=== PATIENT | female | born 1960 | race African-American/Black ===

== ENCOUNTER 2019-06-01 11:53 | Inpatient (IN) | payer MEDICARE, MEDICAID ==
[~2019-06-01] VITALS: Ht 157.5 cm; Wt 111.0 kg
[~2019-06-01 11:53] MED LIST: BENA20TA13; FLUT250M9
[2019-06-01] MEDS ORDERED: cloNIDine HCL 0.1 MG TAB ONE (12:15)
[2019-06-01] MEDS ORDERED: cloNIDine HCL 0.1 MG TAB PO ONE (12:30)
[2019-06-01 13:12] LABS: Basophils # (auto) 0 uL; Basophils % (auto) 0.6 % (0.0-2.0); Eosinophils # (auto) 0.1 uL; Eosinophils % (auto) 0.9 % (0.0-7.0); Hematocrit 40.9 % (36.0-46.0); Hemoglobin 13.5 g/dL (12.2-16.2); Lymphocytes # (auto) 1.1 uL; Lymphocytes % (auto) 17.7 % (10.0-50.0); Mean Corpuscular Hemoglobin 28.8 pg (28.0-32.0); Mean Corpuscular Volume 87.1 fL (80.0-100.0); Monocytes # (auto) 0.4 uL; Monocytes % (auto) 6.6 % (0.0-12.0); Neutrophils # (auto) 4.5 uL; Neutrophils % (auto) 74.2 % (37.0-80.0); Nucleated Red Blood Cells % 0.1 %; Platelet Count (auto) 109 10^3/uL (140-450); Red Blood Cells 4.69 10^6/uL (4.0-5.20); Red Cell Distribution Width 13.9 % (11.8-14.3)
[2019-06-01 13:20] LABS: Alanine Aminotransferase 35 U/L (13-56); Albumin 3.3 g/dL (3.4-5.0); Anion Gap 11 (5-15); Aspartate Aminotransferase 40 U/L (15-37); BUN/Creatinine Ratio 10.7; Blood Urea Nitrogen 11 mg/dL (7-18); Carbon Dioxide 24 mmol/L (21-32); Chloride 109 mmol/L (98-107); GFR African American 71 mL/min; GFR Non-African American 58 mL/min; Glucose 100 mg/dL (74-106); Magnesium 1.8 mg/dL (1.6-2.6); Potassium 3.2 mmol/L (3.5-5.1); Sodium 144 mmol/L (136-145)
[2019-06-01 13:25] LABS: Alkaline Phosphatase 328 U/L (45-117); Bilirubin, Total 1.5 mg/dL (0.2-1.0); Total Protein 8.8 g/dL (6.4-8.2)
[2019-06-01] MEDS ORDERED: SODIUM CHLORIDE 0.9% 250 ML IV ONE (13:45)
[2019-06-01] MEDS ORDERED: methylPREDNISolone SOD SUCC 125 MG/2 ML VL IV ONE (13:45)
[2019-06-01] MEDS ORDERED: ALBUTEROL SULF 2.5 MG/0.5ML(0.5%) NEB SOLN NEB ONE (13:45)
[2019-06-01] MEDS ORDERED: IPRATROPIUM BROM 0.5 MG/2.5ML INH SOL NEB ONE (13:45)
[2019-06-01] MEDS ORDERED: LEVOFLOXACIN 750MG 150 ML IV ONE (15:45)
[2019-06-01] MEDS ORDERED: HYDROcodone-ACET 5/325MG TAB PO PRN (17:00)
[2019-06-01] MEDS ORDERED: NITROGLYCERIN 0.4 MG SL TAB SL PRN (17:00)
[2019-06-01] MEDS ORDERED: MORPHINE SULF INJ 2 MG/ML SYRINGE 1ML IV PRN ×2 (17:00)
[2019-06-01] MEDS ORDERED: hydrALAZINE HCL 20 MG/ML VL IV PRN (17:00)
[2019-06-01] MEDS ORDERED: ONDANSETRON HCL 4 MG/2 ML VIAL IV PRN (17:00)
[2019-06-01] MEDS ORDERED: ACETAMINOPHEN 500 MG TAB PO PRN (17:00)
[2019-06-01] MEDS ORDERED: POTASSIUM CHL 20 Meq TABLET PO ONE (17:00)
[2019-06-01 19:51] VITALS: BP 163/80
--- NOTE | 2019-06-01 19:51 | NUR ---
Telemetry admit from ER JOVANA MARTIN admitted to Telemetry unit after SBAR received. Patient oriented to Starla rodriguez RN, unit, room, bed, and unit policies regarding patient care and visiting hours. Patient now on continuous telemetry monitoring, tele box # [id number] and telemetry reading on arrival to unit is SINUS TACHY @102 . Patient placed on bedside oxygen, weighed by bedscale and encouraged to call if they need something. All questions and concerns addressed, patient verbalized understanding.
[2019-06-01] MEDS: GABAPENTIN 100 MG CAP PO SCH (21:25)
[2019-06-01] MEDS: ATORVASTATIN 20 MG TAB PO SCH (21:25)
[2019-06-01] MEDS: METOPROLOL TARTRATE 50 MG TAB PO SCH (21:25)
[2019-06-01] MEDS ORDERED: PANT40TA2 PO (23:18)
[2019-06-01] MEDS ORDERED: SPIR25TA8 PO (23:18)
[2019-06-01] MEDS ORDERED: LOSA-46 PO (23:19)
--- NOTE | 2019-06-02 04:33 | NUR ---
PATIENT MOVED TO ROOM 275B WITH ALL BELONGINGS
[2019-06-02 05:00] VITALS: BP 157/90
--- NOTE | 2019-06-02 06:52 | NUR ---
CLOSING NOTE PATIENT SLEEPING AT THIS TIME NO S/S OF DISTRESS NOTED. CALL LIGHT WITHIN REACH. WILL ENDORSE CARE TO AM SHIFT RN
[2019-06-02 07:28] LABS: Basophils # (auto) 0 uL; Basophils % (auto) 0.4 % (0.0-2.0); Eosinophils # (auto) 0.1 uL; Hemoglobin 11.2 g/dL (12.2-16.2); Monocytes # (auto) 0.8 uL; Neutrophils # (auto) 5.6 uL; Red Blood Cells 3.22 10^6/uL (4.0-5.20)
[2019-06-02 07:30] LABS: Eosinophils % (auto) 1.6 % (0.0-7.0); Hematocrit 33.3 % (36.0-46.0); Lymphocytes # (auto) 1.1 uL; Lymphocytes % (auto) 14.1 % (10.0-50.0); Mean Corpuscular Hemoglobin 34.8 pg (28.0-32.0); Mean Corpuscular Hgb Conc. 33.7 g/dL (32.0-36.0); Mean Corpuscular Volume 103.4 fL (80.0-100.0); Monocytes % (auto) 10.7 % (0.0-12.0); Neutrophils % (auto) 73.2 % (37.0-80.0); Platelet Count (auto) 265 10^3/uL (140-450); Red Cell Distribution Width 14.9 % (11.8-14.3); White Blood Cell 7.6 10^3/uL (4.4-10.8)
--- NOTE | 2019-06-02 07:30 | NUR ---
Open Shift Note Received report on patient, awake and sitting up in bed. Patient shows no signs of distress at this time. Discussed POC with patient and pending cariology consult and echo. Patient verbalized understanding. Patient verbalizes they have no chest pain or SOB at this time. Bed in lowest locked position, side rails up x2 and call light within reach. Will continue to monitor.
[2019-06-02 07:37] LABS: INR 1.61 (0.9-1.15); Partial Thromboplastin Time 24.5 sec (23.64-32.05)
[2019-06-02 07:47] LABS: Potassium 4.1 mmol/L (3.5-5.1)
[2019-06-02 07:52] LABS: BUN/Creatinine Ratio 23.3
[2019-06-02 08:33] VITALS: BP 145/89
[2019-06-02] MEDS: ASPirin-EC 81 mg tab PO SCH (10:45)
[2019-06-02] MEDS: LISINOPRIL 10 MG TAB PO SCH (10:45)
[2019-06-02] MEDS: GABAPENTIN 100 MG CAP PO SCH ×2 (10:45→22:14)
[2019-06-02] MEDS: METOPROLOL TARTRATE 50 MG TAB PO SCH (10:46)
[2019-06-02] MEDS: FUROSEMIDE 40 MG/4 ML VIAL IV SCH ×2 (12:15→18:26)
[2019-06-02 13:01] VITALS: BP 130/69
[2019-06-02 17:03] VITALS: BP 112/65
--- NOTE | 2019-06-02 18:58 | NUR ---
Closing Note Patient sitting up ion bed, shows no signs of distress at this time. Bed in lowest locked position, side rails up x2 and call light within reach. Patient encouraged to call for help ambulating to restroom if needed.
--- NOTE | 2019-06-02 20:00 | NUR ---
Opening Shift Note: A&Ox4, resting in bed. Currently on 3LO2 via NC; wears 2LO2 at home, pain level 0/10, and at baseline ambulates independently with a cane; currently independent to BSC. Bed locked in lowest position, side rails up x2, and call light within reach. IV 20 g in right hand IID inserted on 06/01/19. Skin intact. POC discussed and questions answered. Will continue to round prn.
[2019-06-02 22:00] VITALS: BP 121/70
[2019-06-02] MEDS: CARVEDILOL 3.125 MG TAB PO SCH (22:14)
[2019-06-02] MEDS: ATORVASTATIN 20 MG TAB PO SCH (22:14)
[2019-06-03 05:09] VITALS: BP 119/77
[2019-06-03] MEDS: FUROSEMIDE 40 MG/4 ML VIAL IV SCH ×2 (06:23→18:48)
--- NOTE | 2019-06-03 07:30 | NUR ---
OPENING NOTE Assumed care of patient from NOC RNSuzan. Patient resting in bed with eyes closed, even rise and fall of chest noted. No S/S of distress/SOB or pain. Bed in lowest, locked position with side rails up x2 and call light within reach. Will continue to monitor for changes Q1hr and PRN.
[2019-06-03] MEDS: CARVEDILOL 3.125 MG TAB PO SCH ×2 (10:00→22:14)
[2019-06-03] MEDS: ASPirin-EC 81 mg tab PO SCH (10:23)
[2019-06-03] MEDS: LISINOPRIL 10 MG TAB PO SCH (10:24)
[2019-06-03] MEDS: GABAPENTIN 100 MG CAP PO SCH ×2 (10:24→22:15)
--- NOTE | 2019-06-03 10:31 | NUR ---
MED HELD Held scheduled Coreg secondary to low HR, 58.
[2019-06-03 11:50] VITALS: BP 124/78
[2019-06-03 17:00] VITALS: BP 131/61
--- NOTE | 2019-06-03 19:25 | NUR ---
CLOSING NOTE Endorsed care of patient to NOC Suzan PAUL.
--- NOTE | 2019-06-03 20:20 | NUR ---
Drug screen urine sample sent to lab via [employer] system.
[2019-06-03 21:10] LABS: Alcohol, Urine < 3.0 mg/dL (0-5); Amphetamine Screen, Urine NEGATIVE (NEGATIVE); Barbiturate Scree,Urine NEGATIVE (NEGATIVE); Benzodiazephine Screen, Urine NEGATIVE (NEGATIVE); Cannabinoid Screen, Urine NEGATIVE (NEGATIVE); Cocaine Screen, Urine NEGATIVE (NEGATIVE); Opiate Scree,Urine NEGATIVE (NEGATIVE); Phencyclidine Screen, Urine NEGATIVE (NEGATIVE)
[2019-06-03 22:00] VITALS: BP 143/75
[2019-06-03] MEDS: ATORVASTATIN 20 MG TAB PO SCH (22:14)
[2019-06-04 05:35] VITALS: BP 106/67
[2019-06-04] MEDS: FUROSEMIDE 40 MG/4 ML VIAL IV SCH (06:13)
[2019-06-04 07:03] LABS: Calcium 8.4 mg/dL (8.5-10.1); Potassium 3.3 mmol/L (3.5-5.1)
--- NOTE | 2019-06-04 07:30 | NUR ---
OPENING NOTE Assumed care of patient from NOC RNSuzan. Patient awake and alert with no S/S of distress/SOB or pain. Nasal cannula in place, connected to 3L O2. Instructed on POC and to call for assist PRN, verbalized understanding. Bed in lowest, locked position with side rails up x2 and call light within reach. Will continue to monitor for changes Q1hr and PRN.
[2019-06-04 09:00] VITALS: BP 106/73
--- NOTE | 2019-06-04 09:45 | NUR ---
EKG EKG performed per order.
[2019-06-04] MEDS ORDERED: FUROSEMIDE 40 MG/4 ML VIAL IV SCH (10:00)
[2019-06-04] MEDS: CARVEDILOL 3.125 MG TAB PO SCH ×2 (10:24→22:03)
[2019-06-04] MEDS: LISINOPRIL 10 MG TAB PO SCH (10:25)
[2019-06-04] MEDS: POTASSIUM CHL 20 Meq TABLET PO SCH (10:25)
[2019-06-04] MEDS: GABAPENTIN 100 MG CAP PO SCH ×2 (10:25→22:03)
[2019-06-04] MEDS: ASPirin-EC 81 mg tab PO SCH (10:25)
--- NOTE | 2019-06-04 12:06 | NUR ---
Nutrition Assessment Notes please see attached link for compete assessment Est. Needs ABW [id number] kcal (17-20 kcal/kgBW), 64-80 gms pro (0.8-1.0 gms/kgBW r/t elev RFT). Will continue to monitor pertinent labs and reassess nutrient need prn Addendum: 06/04/19 at [address] Amended: Links added.
[2019-06-04 13:00] VITALS: BP 137/83
[2019-06-04 17:08] VITALS: BP 116/68
--- NOTE | 2019-06-04 20:00 | NUR ---
Opening Shift Note: A&Ox4, resting in bed. Currently on 3LO2 via NC; wears 2LO2 at home, pain level 0/10, and at baseline ambulates independently with a cane; currently independent to BSC. Bed locked in lowest position, side rails up x2, and call light within reach. IV 20 g in right hand IID inserted on 06/01/19. Skin intact. POC discussed and questions answered. Will continue to round prn. NPO at 0000 for pending stress test.
[2019-06-04 22:00] VITALS: BP 136/72
[2019-06-04] MEDS: ATORVASTATIN 20 MG TAB PO SCH (22:03)
--- NOTE | 2019-06-05 | NUR ---
NPO for stress test on 06/05/19
[2019-06-05 04:55] VITALS: BP 117/83
[2019-06-05 06:21] LABS: BUN/Creatinine Ratio 28.1; Calcium 8.7 mg/dL (8.5-10.1); Potassium 3.7 mmol/L (3.5-5.1)
--- NOTE | 2019-06-05 08:00 | NUR ---
RECEIVED PATIENT, ALERT AND ORIENTED X4, NOT IN DISTRESS, CLEAR LS IN BILATERAL UPPER AND WHEEZING LOWER LUNG LOBES, RR=18, HEAR RAT=76, DENIED SOB AND CHEST PAIN, ABDOMEN SOFT WITH ACTIVE, DENIED ABDOMINAL PAIN OR DISCOMFORT, KEEP NPO FOR STRESS TEST ORDERED, EDUCATION WAS PROVIDED, VERBALIZED UNDERSTANDING, LAST BM=06/04/19 REPORTED, SKIN INTACT WARM TO TOUCH, DENIED PAIN, RESTING ON BED, HAD OF BED ELEVATED, BED ON LOWER POSITION, RAILS UP X2, CALL LIGHTS ON REACH, PENDING CARDIAC STRESS TEST, WILL CONTINUE MONITORING.
--- NOTE | 2019-06-05 08:30 | NUR ---
NONE COMPLIANT, ATE BREAK FAST, RADIOLOGY WAS CALLED FOR STRESS TEST TIME FOLLOW UP AND NOTIFIED PATIENT WILL BE NPO POST BREAK FAST, APPROXIMATE STRESS TEST TIME POST 1200 PM REPORTED.
[2019-06-05 09:00] VITALS: BP 123/72
[2019-06-05] MEDS: FUROSEMIDE 40 MG/4 ML VIAL IV SCH (10:39)
[2019-06-05] MEDS: CARVEDILOL 3.125 MG TAB PO SCH ×2 (10:40→21:58)
[2019-06-05] MEDS: ASPirin-EC 81 mg tab PO SCH (10:40)
[2019-06-05] MEDS: POTASSIUM CHL 20 Meq TABLET PO SCH (10:40)
[2019-06-05] MEDS: GABAPENTIN 100 MG CAP PO SCH ×2 (10:41→21:57)
[2019-06-05] MEDS: LISINOPRIL 10 MG TAB PO SCH (10:42)
[2019-06-05 13:00] VITALS: BP 107/74
--- NOTE | 2019-06-05 13:45 | NUR ---
STRESS LAB WAS CALLED FOR FOLLOW UP, STRESS TEST POSTPONED FOR 06/06/19 DUE TO PATIENT LOAD INCREASE REPORTED BY STRESS LAB, PATIENT WAS INFORMED AND LUNCH TRAY PROVIDED ORDERED, SITTING ON BED EATING LUNCH, FAMILY AT BED SIDE, WILL CONTINUE MONITORING.
[2019-06-05 17:00] VITALS: BP 117/64
--- NOTE | 2019-06-05 19:26 | NUR ---
NOT IN DISTRESS, RESTING ON BED, DENIED PAIN, REPORT WAS GIVEN TO THE REDEVELOPMENT MANAGER RN.
--- NOTE | 2019-06-05 19:30 | NUR ---
OPENING SHIFT NOTE Patient in bed alert and oriented x 4, verbally coherent, able to make needs known. Patient denies pain and discomfort at this time. Plan of care discussed, patient verbalized understanding. All needs attended, will continue to monitor.
[2019-06-05] MEDS: ATORVASTATIN 20 MG TAB PO SCH (21:58)
[2019-06-05 22:00] VITALS: BP 99/65
--- NOTE | 2019-06-05 22:00 | NUR ---
Held medication Carvedilol for procedure tomorrow.
[2019-06-06 05:11] VITALS: BP 126/84
--- NOTE | 2019-06-06 07:45 | NUR ---
Opening Note Assumed care of patient, she is A & O x4, no s/s of distress at this time. Patient POC discussed, she is curious if she is having a stress test today. Will clarify orders with MD. Bed is in low, locked position, call light within reach. Bedside commode at bedside. Will continue to monitor Q1h and PRN. Educated patient to call for assistance PRN.
[2019-06-06 09:00] VITALS: BP 115/62
[2019-06-06] MEDS: FUROSEMIDE 40 MG/4 ML VIAL IV SCH (11:05)
[2019-06-06] MEDS: CARVEDILOL 3.125 MG TAB PO SCH (11:06)
[2019-06-06] MEDS: POTASSIUM CHL 20 Meq TABLET PO SCH (11:07)
[2019-06-06] MEDS: GABAPENTIN 100 MG CAP PO SCH (11:07)
[2019-06-06] MEDS: ASPirin-EC 81 mg tab PO SCH (11:07)
[2019-06-06] MEDS: LISINOPRIL 10 MG TAB PO SCH (11:07)
[2019-06-06 13:00] VITALS: BP 126/59
--- NOTE | 2019-06-06 15:45 | NUR ---
Paged Dr. Parson to clarify discharge order and NM VQ scan. It was ordered after discharge.
[2019-06-06 17:00] VITALS: BP 100/63
[2019-06-06] MEDS ORDERED: CARV12.544 PO (18:16)
[2019-06-06] MEDS ORDERED: FURO40TA4 PO (18:17)
[2019-06-06] MEDS ORDERED: POTA-180 PO (18:22)
[2019-06-06 18:23] VITALS: BP 115/62
== END 2019-06-06 19:50 | disposition home or self-care (01) | DRG 280 ==
LOC: ER 11:53 → TELE 11:54 → TELE-WESTW 19:58
PROVIDERS: ADMIT Nurse Practitioner Acute Care; ATTEND Internal Medicine
DX: I21.A1 Myocardial infarction type 2 (principal); J96.20 Acute and chronic respiratory failure, unspecified whether with hypoxia or hypercapnia; J18.9 Pneumonia, unspecified organism; I50.43 Acute on chronic combined systolic (congestive) and diastolic (congestive) heart failure; E44.1 Mild protein-calorie malnutrition; I16.9 Hypertensive crisis, unspecified; Z68.41 Body mass index [BMI] 40.0-44.9, adult; J44.0 Chronic obstructive pulmonary disease with (acute) lower respiratory infection; I42.9 Cardiomyopathy, unspecified; I11.0 Hypertensive heart disease with heart failure; D86.9 Sarcoidosis, unspecified; E87.6 Hypokalemia; I07.1 Rheumatic tricuspid insufficiency; I35.0 Nonrheumatic aortic (valve) stenosis; Z99.81 Dependence on supplemental oxygen; Z80.3 Family history of malignant neoplasm of breast
CPT/HCPCS: 36415; 71045; 71046; 78582; 80048; 80053; 80307; 82164; 83605; 83735; 83880; 84484; 85025; 85610; 85730; 86141; 87040; 93005; 93306; 94640; 96365; 96375; G0378; J1956

== ENCOUNTER 2020-05-21 19:43 | Inpatient (IN) | payer MEDICARE, MEDICAID ==
[~2020-05-21] VITALS: Ht 157.5 cm; Wt 121.0 kg
[~2020-05-21 19:43] MED LIST changes: -BENA20TA13; +CARV12.544 PO; +FURO40TA4 PO; +LOSA-69 PO; +PANT40TA2 PO; +POTA-180 PO; +SPIR25TA8 PO
[2020-05-21 21:30] LABS: Urine Bacteria FEW /hpf (None Seen); Urine Blood Negative /uL (Negative); Urine Specific Gravity 1.006 (1.001-1.035); Urine WBC <1 /hpf (0 - 5)
[2020-05-21 21:58] LABS: Basophils # (auto) 0.1 10 ^3/uL (0-0.2); Basophils % (auto) 0.7 % (0.0-2.0); Eosinophils # (auto) 0.2 10 ^3/uL (0-0.8); Eosinophils % (auto) 2.2 % (0.0-7.0); Hematocrit 39.1 % (36.0-46.0); Hemoglobin 12.7 g/dL (12.2-16.2); Lymphocytes # (auto) 1.4 10 ^3/uL (0.4-5.4); Lymphocytes % (auto) 19.6 % (10.0-50.0); Mean Corpuscular Hemoglobin 28.7 pg (28.0-32.0); Mean Corpuscular Hgb Conc. 32.5 g/dL (32.0-36.0); Mean Corpuscular Volume 88.3 fL (80.0-100.0); Monocytes # (auto) 0.3 10 ^3/uL (0-1.3); Monocytes % (auto) 4.9 % (0.0-12.0); Neutrophils % (auto) 72.6 % (37.0-80.0); Nucleated Red Blood Cells % 0.1 %; Platelet Count (auto) 131 10^3/uL (140-450); Red Blood Cells 4.43 10^6/uL (4.0-5.20); Red Cell Distribution Width 13.7 % (11.8-14.3); White Blood Cell 6.9 10^3/uL (4.4-10.8)
[2020-05-21 22:17] LABS: Calcium 8.7 mg/dL (8.5-10.1); Potassium 3.1 mmol/L (3.5-5.1)
[2020-05-21 22:20] LABS: Albumin 2.9 g/dL (3.4-5.0); BUN/Creatinine Ratio 21.4; INR 1.11 (0.9-1.15); Partial Thromboplastin Time 26.4 sec (23.64-32.05)
[2020-05-21 22:24] LABS: Bilirubin, Total 1.1 mg/dL (0.2-1.0); Total Protein 8.7 g/dL (6.4-8.2)
[2020-05-22] MEDS ORDERED: SODIUM CHLORIDE 0.9% 1,000 ML IV ONE (01:15)
[2020-05-22] MEDS ORDERED: FUROSEMIDE 20 MG/2 ML VIAL IV ONE (04:45)
[2020-05-22] MEDS ORDERED: POTASSIUM CHL 20 Meq TABLET PO ONE (05:15)
[2020-05-22] MEDS ORDERED: ACETAMINOPHEN 325 MG TAB PO PRN (06:00)
[2020-05-22] MEDS ORDERED: ONDANSETRON HCL 4 MG/2 ML VIAL IV PRN (06:00)
[2020-05-22] MEDS: FUROSEMIDE 20 MG/2 ML VIAL IV SCH ×2 (06:00→18:40)
[2020-05-22] MEDS ORDERED: TEMAZEPAM 15 MG CAP PO PRN (06:00)
[2020-05-22] MEDS ORDERED: HYDROcodone-ACET 5/325MG TAB PO PRN (06:00)
[2020-05-22] MEDS ORDERED: NITROGLYCERIN 0.4 MG SL TAB SL PRN (06:15)
[2020-05-22] MEDS ORDERED: MORPHINE SULF INJ 2 MG/ML SYRINGE 1ML IV PRN (06:15)
[2020-05-22] MEDS ORDERED: dilTIAZem 25 MG/5 ML VIAL IV ONE (06:45)
[2020-05-22] MEDS: cefTRIAXone 1GM/50ML D5W 50 ML IV SCH (09:13)
[2020-05-22 09:30] VITALS: BP 134/83
[2020-05-22] MEDS: CARVEDILOL 12.5 MG TAB PO SCH ×2 (10:30→21:50)
[2020-05-22] MEDS: PANTOPRAZOLE 40 MG TAB PO SCH (10:30)
[2020-05-22] MEDS: SPIRONOLACTONE 25 MG TAB PO SCH (10:30)
[2020-05-22] MEDS: LOSARTAN POTASSIUM 50 MG TAB PO SCH (10:30)
[2020-05-22] MEDS: AZITHROMYCIN 500MG/ 250ML 250 ML IV SCH (10:30)
[2020-05-22] MEDS ORDERED: METOPROLOL TARTRATE 1MG/1ML-5ML VIAL IV PRN (11:00)
[2020-05-22] MEDS ORDERED: ENOXAPARIN SOD 30 MG/0.3 ML SYRINGE SC ONE (11:30)
[2020-05-22] MEDS ORDERED: IOHEXOL 350 MG/ML 100ML IJ ONE (12:02)
[2020-05-22] MEDS ORDERED: PNEUMOCOCCAL VACC POLYS 25 MCG/0.5 ML VIAL IM ONE (12:15)
[2020-05-22] MEDS ORDERED: METOPROLOL TARTRATE 50 MG TAB PO ONE (12:15)
[2020-05-22] MEDS ORDERED: ENOXAPARIN SOD 40 MG/0.4 ML SYRINGE SC ONE (12:30)
[2020-05-22 12:41] VITALS: BP 123/80
[2020-05-22 17:06] VITALS: BP 133/91
[2020-05-22] MEDS: METOPROLOL TARTRATE 50 MG TAB PO SCH (21:51)
[2020-05-22 22:00] VITALS: BP 121/90
[2020-05-23 05:00] VITALS: BP 112/84
[2020-05-23 06:11] LABS: Basophils # (auto) 0.1 10 ^3/uL (0-0.2); Basophils % (auto) 0.8 % (0.0-2.0); Eosinophils # (auto) 0.2 10 ^3/uL (0-0.8); Eosinophils % (auto) 3.1 % (0.0-7.0); Hemoglobin 12.8 g/dL (12.2-16.2); Lymphocytes # (auto) 1.3 10 ^3/uL (0.4-5.4); Mean Corpuscular Hemoglobin 29.5 pg (28.0-32.0); Mean Corpuscular Hgb Conc. 32.8 g/dL (32.0-36.0); Mean Corpuscular Volume 89.9 fL (80.0-100.0); Monocytes # (auto) 0.4 10 ^3/uL (0-1.3); Monocytes % (auto) 5.6 % (0.0-12.0); Neutrophils # (auto) 4.9 10 ^3/uL (1.6-8.6); Neutrophils % (auto) 71.5 % (37.0-80.0); Nucleated Red Blood Cells % 0.1 %; Platelet Count (auto) 123 10^3/uL (140-450); Red Blood Cells 4.33 10^6/uL (4.0-5.20); White Blood Cell 6.8 10^3/uL (4.4-10.8)
[2020-05-23] MEDS: FUROSEMIDE 20 MG/2 ML VIAL IV SCH ×2 (06:45→19:38)
[2020-05-23] MEDS: cefTRIAXone 1GM/50ML D5W 50 ML IV SCH (09:13)
[2020-05-23] MEDS: SPIRONOLACTONE 25 MG TAB PO SCH (09:13)
[2020-05-23] MEDS: AZITHROMYCIN 500MG/ 250ML 250 ML IV SCH (09:13)
[2020-05-23] MEDS: LOSARTAN POTASSIUM 50 MG TAB PO SCH (09:14)
[2020-05-23] MEDS: METOPROLOL TARTRATE 50 MG TAB PO SCH ×3 (09:14→21:04)
[2020-05-23] MEDS: CARVEDILOL 12.5 MG TAB PO SCH ×2 (09:14→21:04)
[2020-05-23] MEDS: ENOXAPARIN SOD 40 MG/0.4 ML SYRINGE SC SCH (09:15)
[2020-05-23] MEDS: PANTOPRAZOLE 40 MG TAB PO SCH (09:15)
[2020-05-23 09:40] VITALS: BP 104/68
[2020-05-23] MEDS ORDERED: ENOXAPARIN SOD 30 MG/0.3 ML SYRINGE SC SCH (10:00)
[2020-05-23 13:34] VITALS: BP 114/85
[2020-05-23 17:00] VITALS: BP 107/82
[2020-05-23 22:00] VITALS: BP 110/80
[2020-05-24 05:00] VITALS: BP 126/81
[2020-05-24] MEDS: FUROSEMIDE 20 MG/2 ML VIAL IV SCH ×2 (06:10→17:55)
[2020-05-24 06:31] LABS: Basophils # (auto) 0 10 ^3/uL (0-0.2); Basophils % (auto) 0.8 % (0.0-2.0); Eosinophils # (auto) 0.2 10 ^3/uL (0-0.8); Eosinophils % (auto) 3.9 % (0.0-7.0); Hematocrit 36.8 % (36.0-46.0); Lymphocytes # (auto) 1.3 10 ^3/uL (0.4-5.4); Lymphocytes % (auto) 21.2 % (10.0-50.0); Mean Corpuscular Hemoglobin 28.8 pg (28.0-32.0); Mean Corpuscular Hgb Conc. 32.5 g/dL (32.0-36.0); Mean Corpuscular Volume 88.6 fL (80.0-100.0); Monocytes # (auto) 0.3 10 ^3/uL (0-1.3); Monocytes % (auto) 5.7 % (0.0-12.0); Neutrophils # (auto) 4.2 10 ^3/uL (1.6-8.6); Neutrophils % (auto) 68.4 % (37.0-80.0); Nucleated Red Blood Cells % 0.1 %; Platelet Count (auto) 123 10^3/uL (140-450); Red Blood Cells 4.15 10^6/uL (4.0-5.20); Red Cell Distribution Width 13.8 % (11.8-14.3); White Blood Cell 6.1 10^3/uL (4.4-10.8)
[2020-05-24 07:18] LABS: Albumin 2.7 g/dL (3.4-5.0); Calcium 8.4 mg/dL (8.5-10.1); Potassium 3.3 mmol/L (3.5-5.1)
[2020-05-24 07:22] LABS: Bilirubin, Total 0.9 mg/dL (0.2-1.0); Total Protein 8.3 g/dL (6.4-8.2)
[2020-05-24] MEDS: CARVEDILOL 12.5 MG TAB PO SCH ×2 (08:57→22:15)
[2020-05-24] MEDS: METOPROLOL TARTRATE 50 MG TAB PO SCH ×2 (08:57→22:15)
[2020-05-24] MEDS: PANTOPRAZOLE 40 MG TAB PO SCH (08:57)
[2020-05-24] MEDS: SPIRONOLACTONE 25 MG TAB PO SCH (08:57)
[2020-05-24] MEDS: cefTRIAXone 1GM/50ML D5W 50 ML IV SCH (08:58)
[2020-05-24 09:52] VITALS: BP 120/87
[2020-05-24] MEDS: LOSARTAN POTASSIUM 50 MG TAB PO SCH (10:00)
[2020-05-24] MEDS: ENOXAPARIN SOD 40 MG/0.4 ML SYRINGE SC SCH (10:00)
[2020-05-24] MEDS: AZITHROMYCIN 500MG/ 250ML 250 ML IV SCH (10:21)
[2020-05-24 13:00] VITALS: BP 119/92
[2020-05-24 16:59] VITALS: BP 127/78
[2020-05-24 22:00] VITALS: BP 115/90
[2020-05-25 05:00] VITALS: BP 124/92
[2020-05-25 05:45] LABS: Basophils # (auto) 0 10 ^3/uL (0-0.2); Basophils % (auto) 0.5 % (0.0-2.0); Eosinophils # (auto) 0.2 10 ^3/uL (0-0.8); Eosinophils % (auto) 3.7 % (0.0-7.0); Hematocrit 37.9 % (36.0-46.0); Hemoglobin 12.4 g/dL (12.2-16.2); Lymphocytes # (auto) 1.3 10 ^3/uL (0.4-5.4); Lymphocytes % (auto) 21.1 % (10.0-50.0); Mean Corpuscular Hemoglobin 29.1 pg (28.0-32.0); Mean Corpuscular Hgb Conc. 32.6 g/dL (32.0-36.0); Mean Corpuscular Volume 89.3 fL (80.0-100.0); Monocytes # (auto) 0.4 10 ^3/uL (0-1.3); Monocytes % (auto) 6.1 % (0.0-12.0); Neutrophils # (auto) 4.3 10 ^3/uL (1.6-8.6); Neutrophils % (auto) 68.6 % (37.0-80.0); Nucleated Red Blood Cells % 0.1 %; Platelet Count (auto) 124 10^3/uL (140-450); Red Blood Cells 4.24 10^6/uL (4.0-5.20); Red Cell Distribution Width 13.7 % (11.8-14.3); White Blood Cell 6.3 10^3/uL (4.4-10.8)
[2020-05-25 06:13] LABS: Potassium 3.3 mmol/L (3.5-5.1)
[2020-05-25 06:19] LABS: Albumin 2.8 g/dL (3.4-5.0); BUN/Creatinine Ratio 22.3; Bilirubin, Total 0.8 mg/dL (0.2-1.0); Calcium 8.8 mg/dL (8.5-10.1); Total Protein 8.8 g/dL (6.4-8.2)
[2020-05-25] MEDS: FUROSEMIDE 20 MG/2 ML VIAL IV SCH ×2 (07:11→18:15)
[2020-05-25] MEDS: POTASSIUM CHL 20MEQ/100ML 100 ML IV SCH ×2 (07:12→08:30)
[2020-05-25] MEDS: cefTRIAXone 1GM/50ML D5W 50 ML IV SCH (09:00)
[2020-05-25 09:27] VITALS: BP 121/86
[2020-05-25] MEDS: ENOXAPARIN SOD 40 MG/0.4 ML SYRINGE SC SCH (09:59)
[2020-05-25] MEDS: PANTOPRAZOLE 40 MG TAB PO SCH (10:00)
[2020-05-25] MEDS: AZITHROMYCIN 500MG/ 250ML 250 ML IV SCH (10:00)
[2020-05-25] MEDS: SPIRONOLACTONE 25 MG TAB PO SCH (10:00)
[2020-05-25] MEDS: CARVEDILOL 12.5 MG TAB PO SCH ×2 (10:01→22:09)
[2020-05-25] MEDS: LOSARTAN POTASSIUM 50 MG TAB PO SCH (10:01)
[2020-05-25] MEDS: METOPROLOL TARTRATE 50 MG TAB PO SCH ×2 (10:01→22:09)
[2020-05-25] MEDS ORDERED: POTASSIUM EFFERVESENT TAB 25 MEQ PO ONE (12:15)
[2020-05-25 14:15] VITALS: BP 106/79
[2020-05-25 16:40] VITALS: BP 118/76
[2020-05-25 22:00] VITALS: BP 106/78
[2020-05-26 05:00] VITALS: BP 125/90
[2020-05-26] MEDS: FUROSEMIDE 20 MG/2 ML VIAL IV SCH (06:43)
[2020-05-26 09:05] VITALS: BP 128/83
[2020-05-26] MEDS: LOSARTAN POTASSIUM 50 MG TAB PO SCH (10:19)
[2020-05-26] MEDS: AZITHROMYCIN 500MG/ 250ML 250 ML IV SCH (10:19)
[2020-05-26] MEDS: cefTRIAXone 1GM/50ML D5W 50 ML IV SCH (10:19)
[2020-05-26] MEDS: ENOXAPARIN SOD 40 MG/0.4 ML SYRINGE SC SCH (10:20)
[2020-05-26] MEDS: CARVEDILOL 12.5 MG TAB PO SCH (10:20)
[2020-05-26] MEDS: SPIRONOLACTONE 25 MG TAB PO SCH (10:25)
[2020-05-26] MEDS: PANTOPRAZOLE 40 MG TAB PO SCH (10:25)
[2020-05-26] MEDS: METOPROLOL TARTRATE 50 MG TAB PO SCH (10:25)
[2020-05-26 11:46] VITALS: BP 128/83
[2020-05-26 13:38] VITALS: BP 109/77
== END 2020-05-26 14:15 | disposition home or self-care (01) | DRG 444 ==
LOC: ER 19:43 → TELE 19:44 → TELE-WESTW 05-22 09:40
PROVIDERS: ADMIT Nurse Practitioner; ATTEND Family Medicine
DX: K80.70 Calculus of gallbladder and bile duct without cholecystitis without obstruction (principal); J18.9 Pneumonia, unspecified organism; I50.23 Acute on chronic systolic (congestive) heart failure; J44.1 Chronic obstructive pulmonary disease with (acute) exacerbation; J44.0 Chronic obstructive pulmonary disease with (acute) lower respiratory infection; Z68.43 Body mass index [BMI] 50.0-59.9, adult; I11.0 Hypertensive heart disease with heart failure; E87.6 Hypokalemia; R00.0 Tachycardia, unspecified; E78.00 Pure hypercholesterolemia, unspecified; R06.03 Acute respiratory distress; E78.5 Hyperlipidemia, unspecified; E66.01 Morbid (severe) obesity due to excess calories; Z20.828 Contact with and (suspected) exposure to other viral communicable diseases; Z53.20 Procedure and treatment not carried out because of patient's decision for unspecified reasons; Z80.3 Family history of malignant neoplasm of breast; Z87.442 Personal history of urinary calculi; Z91.19 Patient's noncompliance with other medical treatment and regimen
CPT/HCPCS: 36415; 71045; 71275; 74176; 74181; 76700; 80053; 81001; 82150; 83690; 83880; 84443; 84484; 85025; 85379; 85610; 85730; 87040; 93005; 93306; 93970; 97163; G0378; J0696; J3480